=== PATIENT | female | born 1975 | race Caucasian/White ===

== ENCOUNTER → 2017-05-01 | Outpatient (CLI) | payer OTHER ==
[~2017-05-01] MED LIST: GADOBENATE DIMEGLUMINE 1 ML IV ONE
--- NOTE | 2017-05-01 14:12 | Diagnostic Imaging Report ---
Examination: MRI BRAIN WITHOUT AND WITH CONTRAST History: Chronic headaches. Dizziness. Comparison studies: None Technique: Pre-contrast: Sagittal T2; axial T1, GRE or SWI, DWI, T2 FLAIR Post-contrast: axial and coronal T1. Intravenous contrast: 15 mL MultiHance Findings: Examination is limited due to presence of dental hardware which results in artifact, particularly on diffusion-weighted imaging. Scalp: No abnormal signal. No masses. Bone marrow: Normal in signal intensity. Brain volume: Adequate for age. No volume loss. Ventricles: Normal in size and configuration. No hydrocephalus. Parenchyma: The visualized brain demonstrates no masses, hemorrhage, acute or chronic vascular insults. Extra-axial spaces: No lesion, fluid collection or hematoma. Enhancement: No abnormal enhancement. Suprasellar and sellar region: No abnormalities. Craniocervical junction: No abnormalities. The foramen magnum is patent. No Chiari malformations. Vessels: Normal flow-voids in the arteries and sinuses. Additional findings:None. IMPRESSION: Despite limitation, no intracranial abnormalities. Signed by: Dr. Maddie Wynn M.D. on 05/01/2017 2:08 PM
== END ==
LOC: MRI 07:40
PROVIDERS: ATTEND Internal Medicine
DX: R51 Headache (principal); G93.9 Disorder of brain, unspecified
CPT/HCPCS: 70553

== ENCOUNTER → 2018-10-14 | Outpatient (CLI) | payer OTHER ==
--- NOTE | 2018-10-15 16:11 | Diagnostic Imaging Report ---
#[id number] - MGSCRBIL #BILATERAL FIRST EVER DIGITAL SCREENING MAMMOGRAM WITH CAD: 10/14/2018 CLINICAL: Routine screening. Baseline exam. No prior exams were available for comparison. There are scattered fibroglandular elements in both breasts. Current study was also evaluated with a Computer Aided Detection (CAD) system. No significant masses, calcifications, or other findings are seen in either breast. IMPRESSION: NEGATIVE There is no mammographic evidence of malignancy. A 1 year screening mammogram is recommended. The patient will be notified by letter of the results. Yon valencia/artur:10/15/2018 11:05:36 Recreation Engineer: Radha ALCALA(Otoniel)(M), [facility] letter sent: Normal Exam Mammogram BI-RADS: 1 Negative
== END ==
LOC: MAMMO 12:43
PROVIDERS: ATTEND Internal Medicine
DX: Z12.31 Encounter for screening mammogram for malignant neoplasm of breast (principal)
CPT/HCPCS: 77067

== ENCOUNTER → 2023-11-21 | Outpatient (REF) | payer OTHER | LOC: MAMMO 08:51 | PROVIDERS: ATTEND Internal Medicine | DX: Z12.31 Encounter for screening mammogram for malignant neoplasm of breast (principal) | CPT/HCPCS: 77067 ==